=== PATIENT | male | born 1965 | race Two or more races ===

== ENCOUNTER 2021-07-04 16:19 | Emergency (ER) | payer MEDICAID ==
[~2021-07-04] VITALS: Ht 180.3 cm; Wt 91.6 kg
[2021-07-04 16:24] VITALS: BP 145/66
[2021-07-04 17:25] LABS: Urine Bacteria NONE SEEN /hpf (None Seen); Urine Blood Negative /uL (Negative); Urine Specific Gravity 1.014 (1.001-1.035); Urine WBC 1 /hpf (0 - 3)
== END 2021-07-04 17:18 | disposition left against medical advice (07) ==
LOC: ER 16:19
DX: M25.562 Pain in left knee (principal); R22.42 Localized swelling, mass and lump, left lower limb; R73.9 Hyperglycemia, unspecified; Z53.21 Procedure and treatment not carried out due to patient leaving prior to being seen by health care provider
CPT/HCPCS: 81001

== ENCOUNTER 2021-08-02 13:45 | Emergency (ER) | payer MEDICAID ==
[~2021-08-02] VITALS: Ht 172.7 cm; Wt 84.8 kg
[2021-08-02 13:48] VITALS: BP 167/120
[2021-08-02 14:38] LABS: Basophils # (auto) 0.1 10 ^3/uL (0-0.2); Basophils % (auto) 1.4 % (0.0-2.0); Eosinophils # (auto) 0.1 10 ^3/uL (0-0.8); Eosinophils % (auto) 1.2 % (0.0-7.0); Hematocrit 34.7 % (41.0-53.0); Hemoglobin 11.8 g/dL (13.5-17.5); Lymphocytes # (auto) 1.1 10 ^3/uL (0.4-5.4); Lymphocytes % (auto) 14.8 % (10.0-50.0); Mean Corpuscular Hemoglobin 29.4 pg (28.0-32.0); Mean Corpuscular Hgb Conc. 34.1 g/dL (32.0-36.0); Mean Corpuscular Volume 86.3 fL (80.0-100.0); Monocytes # (auto) 0.5 10 ^3/uL (0-1.3); Monocytes % (auto) 6.8 % (0.0-12.0); Neutrophils # (auto) 5.8 10 ^3/uL (1.6-8.6); Neutrophils % (auto) 75.8 % (37.0-80.0); Nucleated Red Blood Cells % 0.1 %; Red Blood Cells 4.02 10^6/uL (4.5-5.90); Red Cell Distribution Width 12.4 % (11.8-14.3); White Blood Cell 7.6 10^3/uL (4.4-10.8)
[2021-08-02 15:01] LABS: Albumin 4.1 g/dL (3.4-5.0); Calcium 9.2 mg/dL (8.5-10.1); Magnesium 2.3 mg/dL (1.6-2.6); Potassium 5.5 mmol/L (3.5-5.1)
[2021-08-02 15:11] LABS: BUN/Creatinine Ratio 28.7; Bilirubin, Total 0.3 mg/dL (0.2-1.0); Total Protein 8.9 g/dL (6.4-8.2)
[2021-08-02 15:32] LABS: Urine Bacteria NONE SEEN /hpf (None Seen); Urine Blood Negative /uL (Negative); Urine Specific Gravity 1.007 (1.001-1.035); Urine WBC 2 /hpf (0 - 3)
[2021-08-02 15:38] LABS: Alcohol, Urine < 3.0 mg/dL (0-10); Amphetamine Screen, Urine POSITIVE (NEGATIVE); Barbiturate Scree,Urine NEGATIVE (NEGATIVE); Benzodiazephine Screen, Urine NEGATIVE (NEGATIVE); Cannabinoid Screen, Urine NEGATIVE (NEGATIVE); Cocaine Screen, Urine NEGATIVE (NEGATIVE); Opiate Scree,Urine NEGATIVE (NEGATIVE); Phencyclidine Screen, Urine NEGATIVE (NEGATIVE)
== END 2021-08-02 18:02 | disposition left against medical advice (07) ==
LOC: ER 13:45
DX: I10 Essential (primary) hypertension (principal); R73.9 Hyperglycemia, unspecified; R51.9 Headache, unspecified; R11.0 Nausea; Z53.21 Procedure and treatment not carried out due to patient leaving prior to being seen by health care provider
CPT/HCPCS: 36415; 36600; 71045; 80053; 80307; 81001; 82010; 82805; 83735; 85025; 93005

== ENCOUNTER 2021-08-03 09:01 | Inpatient (IN) | payer MEDICAID ==
[~2021-08-03] VITALS: Ht 180.3 cm; Wt 86.1 kg
[2021-08-03] MEDS: SODIUM CHLORIDE 0.9% 1,000 ML IV SCH ×2 (02:45→16:07)
[2021-08-03] MEDS ORDERED: SODIUM CHLORIDE 0.9% 1,000 ML IV ONE ×2 (09:15)
[2021-08-03 09:39] LABS: Basophils # (auto) 0.1 10 ^3/uL (0-0.2); Basophils % (auto) 1.9 % (0.0-2.0); Eosinophils # (auto) 0.1 10 ^3/uL (0-0.8); Eosinophils % (auto) 1.9 % (0.0-7.0); Hematocrit 34.2 % (41.0-53.0); Hemoglobin 11.7 g/dL (13.5-17.5); Lymphocytes # (auto) 1.1 10 ^3/uL (0.4-5.4); Lymphocytes % (auto) 15.5 % (10.0-50.0); Mean Corpuscular Hemoglobin 29.5 pg (28.0-32.0); Mean Corpuscular Hgb Conc. 34.3 g/dL (32.0-36.0); Mean Corpuscular Volume 85.9 fL (80.0-100.0); Monocytes # (auto) 0.4 10 ^3/uL (0-1.3); Monocytes % (auto) 6.4 % (0.0-12.0); Neutrophils # (auto) 5.2 10 ^3/uL (1.6-8.6); Neutrophils % (auto) 74.3 % (37.0-80.0); Red Blood Cells 3.98 10^6/uL (4.5-5.90); Red Cell Distribution Width 12.4 % (11.8-14.3)
[2021-08-03 09:40] LABS: Urine Bacteria NONE SEEN /hpf (None Seen); Urine Blood Negative /uL (Negative); Urine Specific Gravity 1.006 (1.001-1.035); Urine WBC 2 /hpf (0 - 3)
[2021-08-03] MEDS ORDERED: InsuLIN REG 1unit/0.01ml Soln (100units/ml) IV ONE ×2 (09:45→11:45)
[2021-08-03 10:04] LABS: Albumin 3.8 g/dL (3.4-5.0); Calcium 9.1 mg/dL (8.5-10.1)
[2021-08-03 10:12] LABS: BUN/Creatinine Ratio 29.7; Bilirubin, Total 0.3 mg/dL (0.2-1.0); Total Protein 8.9 g/dL (6.4-8.2)
[2021-08-03 10:22] LABS: Potassium 5.6 mmol/L (3.5-5.1)
[2021-08-03] MEDS ORDERED: FUROSEMIDE 20 MG/2 ML VIAL IV ONE (11:45)
[2021-08-03] MEDS ORDERED: SODIUM ZIRCONIUM CYCL 10 GM PAK PO ONE (11:45)
[2021-08-03] MEDS ORDERED: ALBUTEROL SULF 2.5 MG/0.5ML(0.5%) NEB SOLN NEB ONE (11:45)
[2021-08-03] MEDS ORDERED: CALCIUM GLUC 1,000mg/50ml-NS 50 ML IV ONE (11:45)
[2021-08-03] MEDS ORDERED: SODIUM BICARBONATE 8.4% INJ 50ML SYRINGE IV ONE (11:45)
[2021-08-03] MEDS ORDERED: DEXTROSE (50%) 50ML SYRG IV ONE (11:45)
[2021-08-03] MEDS ORDERED: HYDROcodone-ACET 5/325MG TAB PO PRN (12:45)
[2021-08-03] MEDS ORDERED: ACETAMINOPHEN 325 MG TAB PO PRN (12:45)
[2021-08-03] MEDS ORDERED: NITROGLYCERIN 0.4 MG SL TAB SL PRN (12:45)
[2021-08-03] MEDS ORDERED: MORPHINE SULFATE INJECTION 2 MG/ML SYRG IV PRN (12:45)
[2021-08-03] MEDS ORDERED: DEXTROSE (50%) 50ML SYRG IV PRN ×2 (12:45→22:00)
[2021-08-03 14:27] LABS: BUN/Creatinine Ratio 30.4; Calcium 8.4 mg/dL (8.5-10.1); Potassium 5.2 mmol/L (3.5-5.1)
[2021-08-03 14:45] LABS: Potassium 5.1 mmol/L (3.5-5.1)
[2021-08-03] MEDS: InsuLIN REG 1unit/0.01ml Soln (100units/ml) SC SCH ×2 (15:59→20:00)
[2021-08-03] MEDS: ACCU-CHEK COMFORT CURVE STRIP VI SCH ×2 (16:07→21:44)
[2021-08-03 20:46] LABS: BUN/Creatinine Ratio 27.7; Calcium 8.5 mg/dL (8.5-10.1); Potassium 4.4 mmol/L (3.5-5.1)
[2021-08-03 22:00] VITALS: BP 156/110
[2021-08-03] MEDS ORDERED: LABETALOL HCL 5 MG/ML 4ML SYRINGE IV PRN (22:00)
[2021-08-04 01:26] LABS: BUN/Creatinine Ratio 27.5; Calcium 8.2 mg/dL (8.5-10.1); Potassium 4.4 mmol/L (3.5-5.1)
[2021-08-04] MEDS: ACCU-CHEK COMFORT CURVE STRIP VI SCH ×4 (02:10→18:10)
[2021-08-04] MEDS: InsuLIN REG 1unit/0.01ml Soln (100units/ml) SC SCH ×4 (02:10→18:13)
[2021-08-04 05:00] VITALS: BP 131/67
[2021-08-04 06:45] LABS: Basophils # (auto) 0.1 10 ^3/uL (0-0.2); Basophils % (auto) 1.3 % (0.0-2.0); Eosinophils # (auto) 0.2 10 ^3/uL (0-0.8); Eosinophils % (auto) 2.4 % (0.0-7.0); Hemoglobin 10.5 g/dL (13.5-17.5); Lymphocytes # (auto) 1.2 10 ^3/uL (0.4-5.4); Lymphocytes % (auto) 19.9 % (10.0-50.0); Mean Corpuscular Hemoglobin 29.6 pg (28.0-32.0); Mean Corpuscular Hgb Conc. 35.1 g/dL (32.0-36.0); Mean Corpuscular Volume 84.3 fL (80.0-100.0); Monocytes # (auto) 0.5 10 ^3/uL (0-1.3); Monocytes % (auto) 8.6 % (0.0-12.0); Neutrophils # (auto) 4.2 10 ^3/uL (1.6-8.6); Neutrophils % (auto) 67.8 % (37.0-80.0); Nucleated Red Blood Cells % 0.1 %; Red Blood Cells 3.56 10^6/uL (4.5-5.90); Red Cell Distribution Width 12.4 % (11.8-14.3); White Blood Cell 6.2 10^3/uL (4.4-10.8)
[2021-08-04 06:55] LABS: BUN/Creatinine Ratio 26.5; Calcium 8.3 mg/dL (8.5-10.1)
[2021-08-04 08:00] VITALS: BP 137/93
[2021-08-04 08:30] VITALS: BP 137/93
[2021-08-04] MEDS ORDERED: FUROSEMIDE 20 MG/2 ML VIAL IV ONE (08:45)
[2021-08-04] MEDS: SODIUM CHLORIDE 0.9% 1,000 ML IV SCH ×2 (08:59→18:53)
[2021-08-04 12:30] VITALS: BP 124/65
[2021-08-04 17:14] VITALS: BP 152/101
[2021-08-04 22:17] VITALS: BP 139/97
[2021-08-05] MEDS: InsuLIN REG 1unit/0.01ml Soln (100units/ml) SC SCH ×3 (00:25→12:14)
[2021-08-05] MEDS: ACCU-CHEK COMFORT CURVE STRIP VI SCH ×3 (00:26→12:13)
[2021-08-05] MEDS: SODIUM CHLORIDE 0.9% 1,000 ML IV SCH ×2 (04:55→14:49)
[2021-08-05 05:03] VITALS: BP 153/92
[2021-08-05 08:00] VITALS: BP 151/96
[2021-08-05 08:33] VITALS: BP 151/96
[2021-08-05 09:29] LABS: BUN/Creatinine Ratio 22.6; Potassium 4.2 mmol/L (3.5-5.1)
[2021-08-05 12:58] VITALS: BP 143/107
[2021-08-05] MEDS ORDERED: INSU1INJ19 SC (15:47)
[2021-08-05] MEDS ORDERED: INSU100I4 SC (15:47)
[2021-08-05] MEDS ORDERED: BLOO1KIT60 XX (15:47)
== END 2021-08-05 16:25 | disposition left against medical advice (07) | DRG 469 ==
LOC: ER 09:01 → TELE 12:39 → TELE-WESTW 20:03
PROVIDERS: ADMIT Internal Medicine; ATTEND Internal Medicine
DX: N17.0 Acute kidney failure with tubular necrosis (principal); E87.1 Hypo-osmolality and hyponatremia; E11.22 Type 2 diabetes mellitus with diabetic chronic kidney disease; E86.0 Dehydration; E87.5 Hyperkalemia; E11.65 Type 2 diabetes mellitus with hyperglycemia; I12.9 Hypertensive chronic kidney disease with stage 1 through stage 4 chronic kidney disease, or unspecified chronic kidney disease; Z53.29 Procedure and treatment not carried out because of patient's decision for other reasons; N18.9 Chronic kidney disease, unspecified; Z20.822 Contact with and (suspected) exposure to COVID-19; Z83.3 Family history of diabetes mellitus; N32.0 Bladder-neck obstruction
CPT/HCPCS: 36415; 36600; 71046; 74176; 76775; 80048; 80053; 81001; 82010; 82805; 82962; 83036; 84132; 84484; 85025; 87426; 93005; 93306; 94640; 96361; 96374; 96375; G0378; J1815; J3490

== ENCOUNTER 2023-03-03 15:53 | Inpatient (IN) | payer MEDICAID ==
[~2023-03-03] VITALS: Ht 177.8 cm; Wt 98.8 kg
[~2023-03-03 15:53] MED LIST: BLOO1KIT60 XX; INSU100I4 SC; INSU1INJ19 SC
[2023-03-03 17:06] LABS: Basophils # (auto) 0.2 10 ^3/uL (0-0.2); Basophils % (auto) 2.1 % (0.0-2.0); Eosinophils # (auto) 0.2 10 ^3/uL (0-0.8); Eosinophils % (auto) 2.6 % (0.0-7.0); Hemoglobin 12.9 g/dL (13.5-17.5); Lymphocytes # (auto) 1.3 10 ^3/uL (0.4-5.4); Lymphocytes % (auto) 14.4 % (10.0-50.0); Mean Corpuscular Hemoglobin 24.6 pg (28.0-32.0); Mean Corpuscular Hgb Conc. 31.5 g/dL (32.0-36.0); Monocytes % (auto) 10.3 % (0.0-12.0); Neutrophils # (auto) 6.6 10 ^3/uL (1.6-8.6); Neutrophils % (auto) 70.6 % (37.0-80.0); Nucleated Red Blood Cells % 0.1 %; Red Blood Cells 5.26 10^6/uL (4.5-5.90); Red Cell Distribution Width 15.9 % (11.8-14.3); White Blood Cell 9.4 10^3/uL (4.4-10.8)
[2023-03-03 17:21] LABS: INR 1.1 (0.9-1.15)
[2023-03-03 17:25] LABS: Albumin 2.7 g/dL (3.4-5.0); BUN/Creatinine Ratio 21.4 (10.0-20.0); Calcium 8.4 mg/dL (8.5-10.1); Magnesium 1.9 mg/dL (1.6-2.6); Potassium 3.3 mmol/L (3.5-5.1)
[2023-03-03 17:33] LABS: Bilirubin, Total 0.6 mg/dL (0.2-1.0); Total Protein 7.3 g/dL (6.4-8.2)
[2023-03-03] MEDS ORDERED: FUROSEMIDE 40 MG/4 ML VIAL IV ONE (17:45)
[2023-03-03] MEDS ORDERED: CALCIUM GLUC 1,000mg/50ml-NS 50 ML IV ONE (19:00)
[2023-03-03] MEDS: POTASSIUM CHL 20MEQ/100ML 100 ML IV SCH ×2 (20:10→22:20)
[2023-03-03] MEDS ORDERED: TEMAZEPAM 15 MG CAP PO PRN (20:45)
[2023-03-03] MEDS ORDERED: MORPHINE SULFATE INJ 2 MG/ml SYRG IV PRN (20:45)
[2023-03-03] MEDS ORDERED: NITROGLYCERIN 0.4 MG SL TAB SL PRN (20:45)
[2023-03-03] MEDS ORDERED: ONDANSETRON HCL 4 MG/2 ML VIAL IV PRN (20:45)
[2023-03-03] MEDS ORDERED: DEXTROSE (50%) 50ML SYRG IV PRN (20:45)
[2023-03-03] MEDS ORDERED: ACETAMINOPHEN 325 MG TAB PO PRN (20:45)
[2023-03-03] MEDS: ACCU-CHEK COMFORT CURVE STRIP VI SCH (21:26)
[2023-03-03] MEDS: InsuLIN REG 1unit/0.01ml Soln (100units/ml) SC SCH (21:42)
[2023-03-03] MEDS ORDERED: ATORVASTATIN 20 MG TAB PO SCH (22:00)
[2023-03-04] MEDS: FUROSEMIDE 20 MG/2 ML VIAL IV SCH ×2 (05:52→18:07)
[2023-03-04 05:54] LABS: Basophils # (auto) 0.1 10 ^3/uL (0-0.2); Basophils % (auto) 1.8 % (0.0-2.0); Eosinophils # (auto) 0.4 10 ^3/uL (0-0.8); Eosinophils % (auto) 4.7 % (0.0-7.0); Hematocrit 37.9 % (41.0-53.0); Lymphocytes # (auto) 1.4 10 ^3/uL (0.4-5.4); Lymphocytes % (auto) 16.9 % (10.0-50.0); Mean Corpuscular Hemoglobin 25.1 pg (28.0-32.0); Mean Corpuscular Hgb Conc. 31.8 g/dL (32.0-36.0); Mean Corpuscular Volume 78.8 fL (80.0-100.0); Monocytes # (auto) 0.8 10 ^3/uL (0-1.3); Neutrophils # (auto) 5.4 10 ^3/uL (1.6-8.6); Neutrophils % (auto) 66.6 % (37.0-80.0); Red Blood Cells 4.81 10^6/uL (4.5-5.90); Red Cell Distribution Width 15.8 % (11.8-14.3)
[2023-03-04] MEDS: ACCU-CHEK COMFORT CURVE STRIP VI SCH ×4 (06:14→22:21)
[2023-03-04 06:22] LABS: Potassium 3.8 mmol/L (3.5-5.1)
[2023-03-04] MEDS: InsuLIN REG 1unit/0.01ml Soln (100units/ml) SC SCH ×4 (06:26→22:21)
[2023-03-04 06:29] LABS: Albumin 2.5 g/dL (3.4-5.0); Bilirubin, Total 0.5 mg/dL (0.2-1.0); Calcium 7.9 mg/dL (8.5-10.1); Total Protein 6.2 g/dL (6.4-8.2)
[2023-03-04] MEDS ORDERED: METOPROLOL SUCCINATE XL 50 MG TAB PO SCH (10:00)
[2023-03-04] MEDS ORDERED: ASPirin 81 mg TAB PO SCH ×2 (10:00)
[2023-03-04] MEDS ORDERED: LISINOPRIL 5 MG TAB PO SCH (10:00)
[2023-03-04] MEDS: PANTOPRAZOLE 40 MG TAB PO SCH (10:22)
[2023-03-04] MEDS ORDERED: METO25TA93 PO (12:17)
[2023-03-04] MEDS ORDERED: POTA1TAB61 PO (12:17)
[2023-03-04] MEDS ORDERED: ASPI-325 PO (12:17)
[2023-03-04] MEDS ORDERED: LISI-275 PO (12:17)
[2023-03-04 16:03] LABS: Cholesterol 142 mg/dL (< 200); HDL Cholesterol 34 mg/dL (40-59); LDL Cholesterol 93 mg/dL (< 100); Triglycerides 70 mg/dL (< 150)
[2023-03-04] MEDS: POTASSIUM CHL 10 Meq TABLET PO SCH (22:22)
[2023-03-04] MEDS: ATORVASTATIN 20 MG TAB PO SCH (22:22)
[2023-03-05] MEDS: ACCU-CHEK COMFORT CURVE STRIP VI SCH ×4 (06:27→22:06)
[2023-03-05] MEDS: FUROSEMIDE 20 MG/2 ML VIAL IV SCH ×2 (06:27→18:32)
[2023-03-05] MEDS: InsuLIN REG 1unit/0.01ml Soln (100units/ml) SC SCH ×4 (06:32→22:15)
[2023-03-05 07:01] LABS: Albumin 2.4 g/dL (3.4-5.0); BUN/Creatinine Ratio 29.7 (10.0-20.0); Basophils # (auto) 0.2 10 ^3/uL (0-0.2); Basophils % (auto) 2.1 % (0.0-2.0); Bilirubin, Total 0.3 mg/dL (0.2-1.0); Calcium 8.3 mg/dL (8.5-10.1); Eosinophils # (auto) 0.6 10 ^3/uL (0-0.8); Eosinophils % (auto) 7.8 % (0.0-7.0); Hemoglobin 12.2 g/dL (13.5-17.5); Magnesium 2.1 mg/dL (1.6-2.6); Monocytes # (auto) 0.7 10 ^3/uL (0-1.3); Neutrophils # (auto) 4.9 10 ^3/uL (1.6-8.6); Total Protein 6.4 g/dL (6.4-8.2); White Blood Cell 7.6 10^3/uL (4.4-10.8)
[2023-03-05 07:03] LABS: Hematocrit 38.6 % (41.0-53.0); Lymphocytes # (auto) 1.3 10 ^3/uL (0.4-5.4); Lymphocytes % (auto) 16.5 % (10.0-50.0); Mean Corpuscular Hemoglobin 25.1 pg (28.0-32.0); Mean Corpuscular Hgb Conc. 31.6 g/dL (32.0-36.0); Mean Corpuscular Volume 79.5 fL (80.0-100.0); Monocytes % (auto) 8.9 % (0.0-12.0); Neutrophils % (auto) 64.7 % (37.0-80.0); Nucleated Red Blood Cells % 0.2 %; Red Blood Cells 4.86 10^6/uL (4.5-5.90); Red Cell Distribution Width 16.1 % (11.8-14.3)
[2023-03-05] MEDS ORDERED: LISINOPRIL 5 MG TAB PO SCH (10:00)
[2023-03-05] MEDS ORDERED: METOPROLOL SUCCINATE XL 50 MG TAB PO SCH (10:00)
[2023-03-05] MEDS ORDERED: SPIRONOLACTONE 25 MG TAB PO SCH (10:00)
[2023-03-05] MEDS: ASPirin-EC 81 mg tab PO SCH (11:12)
[2023-03-05] MEDS: PANTOPRAZOLE 40 MG TAB PO SCH (11:14)
[2023-03-05] MEDS: POTASSIUM CHL 10 Meq TABLET PO SCH ×2 (11:14→22:14)
[2023-03-05] MEDS: ATORVASTATIN 20 MG TAB PO SCH (22:14)
[2023-03-05 23:35] VITALS: BP 106/85
[2023-03-06 05:00] VITALS: BP 93/59
[2023-03-06] MEDS: FUROSEMIDE 20 MG/2 ML VIAL IV SCH ×2 (05:57→17:43)
[2023-03-06] MEDS: InsuLIN REG 1unit/0.01ml Soln (100units/ml) SC SCH ×4 (06:00→21:44)
[2023-03-06] MEDS: ACCU-CHEK COMFORT CURVE STRIP VI SCH ×4 (06:25→21:45)
[2023-03-06 09:01] VITALS: BP 126/71
[2023-03-06] MEDS: POTASSIUM CHL 10 Meq TABLET PO SCH ×2 (09:35→21:31)
[2023-03-06] MEDS: PANTOPRAZOLE 40 MG TAB PO SCH (09:35)
[2023-03-06] MEDS: ASPirin-EC 81 mg tab PO SCH (09:35)
[2023-03-06] MEDS ORDERED: SPIRONOLACTONE 25 MG TAB PO SCH (10:00)
[2023-03-06] MEDS ORDERED: LISINOPRIL 5 MG TAB PO SCH (10:00)
[2023-03-06 13:00] VITALS: BP 90/65
[2023-03-06] MEDS ORDERED: FUROSEMIDE 20 MG/2 ML VIAL IV ONE (13:45)
[2023-03-06 17:00] VITALS: BP 107/72
[2023-03-06] MEDS: CARVEDILOL 3.125 MG TAB PO SCH (21:29)
[2023-03-06] MEDS: ATORVASTATIN 20 MG TAB PO SCH (21:31)
[2023-03-06 22:00] VITALS: BP 112/83
[2023-03-07 05:00] VITALS: BP 100/68
[2023-03-07] MEDS: FUROSEMIDE 20 MG/2 ML VIAL IV SCH (06:00)
[2023-03-07 06:52] LABS: BUN/Creatinine Ratio 26.5 (10.0-20.0); Calcium 8.4 mg/dL (8.5-10.1); Potassium 4.2 mmol/L (3.5-5.1)
[2023-03-07] MEDS: InsuLIN REG 1unit/0.01ml Soln (100units/ml) SC SCH ×2 (06:54→11:49)
[2023-03-07] MEDS: ACCU-CHEK COMFORT CURVE STRIP VI SCH ×2 (06:56→11:48)
[2023-03-07] MEDS ORDERED: EMPAGLIFLOZIN 10 MG TAB PO SCH (07:00)
[2023-03-07 09:00] VITALS: BP 115/78
[2023-03-07] MEDS: ASPirin-EC 81 mg tab PO SCH (09:53)
[2023-03-07] MEDS: POTASSIUM CHL 10 Meq TABLET PO SCH (09:54)
[2023-03-07] MEDS: CARVEDILOL 3.125 MG TAB PO SCH (09:54)
[2023-03-07] MEDS: PANTOPRAZOLE 40 MG TAB PO SCH (09:54)
[2023-03-07] MEDS ORDERED: SPIRONOLACTONE 25 MG TAB PO SCH (10:00)
[2023-03-07] MEDS ORDERED: ASPI-543 PO (12:15)
[2023-03-07] MEDS ORDERED: SPIR25TA PO (12:15)
[2023-03-07] MEDS ORDERED: EMPA1TAB PO (12:15)
[2023-03-07] MEDS ORDERED: POTA-228 PO (12:15)
[2023-03-07] MEDS ORDERED: ATOR20TA50 PO (12:15)
[2023-03-07] MEDS ORDERED: CAR3125T PO (12:15)
[2023-03-07] MEDS ORDERED: METF-371 PO (12:15)
[2023-03-07] MEDS ORDERED: PANT40T PO (12:15)
[2023-03-07] MEDS ORDERED: SACU1TAB PO (12:15)
[2023-03-07] MEDS ORDERED: FURO1TAB31 PO (12:15)
[2023-03-07 15:02] VITALS: BP 115/78
[2023-03-07] MEDS ORDERED: SACUBITRIL-VALSARTAN 24mg/26mg TAB PO SCH (22:00)
== END 2023-03-07 15:50 | disposition home or self-care (01) | DRG 133 ==
LOC: ER 15:53 → TELE 20:41 → TELE-WESTW 03-05 22:55
PROVIDERS: ADMIT Internal Medicine; ATTEND Internal Medicine
DX: J96.00 Acute respiratory failure, unspecified whether with hypoxia or hypercapnia (principal); I21.A1 Myocardial infarction type 2; I50.43 Acute on chronic combined systolic (congestive) and diastolic (congestive) heart failure; E83.51 Hypocalcemia; I42.9 Cardiomyopathy, unspecified; I11.0 Hypertensive heart disease with heart failure; E87.6 Hypokalemia; E11.9 Type 2 diabetes mellitus without complications; E66.01 Morbid (severe) obesity due to excess calories; Z68.36 Body mass index [BMI] 36.0-36.9, adult; Z83.3 Family history of diabetes mellitus; Z91.199 Patient's noncompliance with other medical treatment and regimen due to unspecified reason; Z68.31 Body mass index [BMI] 31.0-31.9, adult
CPT/HCPCS: 36415; 36600; 71045; 80048; 80053; 80061; 82805; 82962; 83036; 83735; 83880; 84443; 84484; 85025; 85610; 85730; 93005; 93306; G0378; J1815; J3480